=== PATIENT | female | born 1945 | race Caucasian/White ===

== ENCOUNTER 2016-09-27 09:03 | Inpatient (IN) | payer OTHER, MEDICARE ==
[~2016-09-27] VITALS: Ht 162.6 cm; Wt 72.6 kg
--- NOTE | ~2016-09-27 | 2DMMODE ---
[facility] [email or web address] [place] [address] 2 D/M-MODE ECHOCARDIOGRAM Name: ROSALIA ARTHUR Room #: 458-P [facility] IN .R.#: [id number] Admission: 09/27/16 Attend Phys: Sabiha Valdez Discharge: Date of : 41 Date of Service: 09/28/16 1529 Report #: [id number] THIS REPORT FOR: //name// APPROVED REPORT Study performed: 09/28/2016 14:25:13 EXAM: Comprehensive 2D, Doppler, and color-flow Echocardiogram Patient Location: Echo lab/Room 458 Blood Pressure: 140/61 mmHg HR: 68 bpm Rhythm: NSR Other Information Study Quality: Adequate Technically limited study due to body habitus. Indications TIA. Hx: HTN, tobacco abuse, obesity. 2D Dimensions RVDd: 29.98 mm LVEF(%): 65.24 (>50%) IVSd: 11.70 (7-11mm) LVOT Diam: 20.06 (18-24mm) LVDd: 38.72 mm PWd: 11.94 (7-11mm) Ascending Aorta: 39.19 mm LVDs: 25.09 (25-40mm) Aortic Root: 32.23 mm Walker's LVEF: 65.24 % Volumes Left Atrial Volume (Systole) Single Plane 4CH: 15.78 mL Single Plane 2CH: 21.82 mL LA ESV Index: 10.00 mL/m2 Aortic Valve AoV Peak Rip.: 1.58 m/s AO Peak Gr.: 9.95 mmHg LV Max P.82 mmHg LV Max: 1.10 m/s Mitral Valve MV PHT: 63.85 ms MV E Max Rip.: 0.76 m/s E/A Ratio: 0.[address] [facility] [email or web address] [address] 2 D/M-MODE ECHOCARDIOGRAM Name: ROSALIA ARTHUR Room #: 458-[facility] IN ..#: [id number] Admission: 09/27/16 Attend Phys: Sabiha Valdez Discharge: Date of : 41 Date of Service: 09/28/16 1529 Report #: [id number] MV A Rip.: 0.84 m/s MV Decel. Time: 220.18 ms Pulmonary Valve PV Peak Rip.: 1.09 m/s PV Peak Gr.: 4.75 mmHg Tricuspid Valve TR Peak Rip.: 2.30 m/s RAP Estimate: 5.00 mmHg TR Peak Gr.: 21.13 mmHg RVSP: 26.00 mmHg Left Ventricle The left ventricle is normal size. There is normal LV segmental wall motion. Mild concentric left ventricular hypertrophy. Left ventricular systolic function is normal. LVEF is 60-65%. Grade I - abnormal relaxation pattern. Right Ventricle The right ventricle is normal size. The right ventricular systolic function is normal. Atria The left atrium size is normal. Injection of bubbles documented no interatrial shunt. The right atrium size is normal. Aortic Valve The Aortic valve is mildly sclerotic. Trace aortic regurgitation. There is no aortic valvular stenosis. Mitral Valve The mitral valve is normal in structure. Trace mitral regurgitation. Tricuspid Valve The tricuspid valve is normal in structure. There is mild tricuspid regurgitation. The right atrial pressure is estimated at 5 mmHg. Estimated PAP is 26mmHg. Pulmonic Valve The pulmonary valve is normal in structure. Trace pulmonic regurgitation. Great Vessels The aortic root is normal in size. The ascending aorta is mildly dilated. IVC is normal in size and collapses >50% with inspiration. Pericardium [facility] [address] [place] [address] 2 D/M-MODE ECHOCARDIOGRAM Name: ROSALIA ARTHUR Ann Room #: 458-P [facility] IN ..#: [id number] Admission: 09/27/16 Attend Phys: Sabiha Valdez Discharge: Date of : 41 Date of Service: 09/28/16 1529 Report #: [id number] There is no pericardial effusion. <Conclusion> The left ventricle is normal size. LVEF is 60-65%. Injection of bubbles documented no interatrial shunt. The Aortic valve is mildly sclerotic. Trace aortic regurgitation. Trace mitral regurgitation. The tricuspid valve is normal in structure. There is mild tricuspid regurgitation. The right atrial pressure is estimated at 5 mmHg. Estimated PAP is 26mmHg. Trace pulmonic regurgitation. <ELECTRONICALLY SIGNED> By: Hardeep Schmitz MD 09/28/16 1529 1529 1529 Hardeep Schmitz MD /INF
--- NOTE | ~2016-09-27 | EKG ---
[place] [address] [address] [facility] [place] [address] ELECTROCARDIOGRAM REPORT Name: DAPHNEWILMER HEDRICKRA Juarez Room #: 458- ADM IN M.R.#: [id number] Admission: 09/27/16 Attend Phys: Sabiha Christopher Discharge: Date of : 41 Report #: [id number] THIS REPORT FOR: //name// [facility] ED Test Date: 2016-09-27 Test Time: 09:48:07 Pat Name: ROSALIA ARTHUR Department: Room: [facility] Gender: F Functional Analyst: addie : 1945 Requested By: Iliana Leblanc Order Number: [id number] MD: Vernon Thayer Measurements Intervals [place] Rate: 63 P: -16 LA: 208 QRS: -33 QRSD: 89 T: 20 QT: 376 QTc: 385 Interpretive Statements Sinus rhythm Abnormal R-wave progression, late transition Left ventricular hypertrophy No previous ECG available for comparison Electronically Signed On 09-29-2016 7:32:10 CDT by Vernon Thayer [email or web address] <ELECTRONICALLY SIGNED> By: Vernon Thayer MD, [facility] 09/29/16 0732 0948 7 Vernon Thayer MD, FACC /EPI
--- NOTE | ~2016-09-27 | HC ---
[facility] [place] [address] CONSULTATION Name: ROSALIA ARTHUR Room #: 458-P [facility] IN M.R.#: [id number] Admission: 09/27/16 Attend Phys: Sabiha Christopher Discharge: 09/29/16 Date of : 41 Report #: [id number] THIS REPORT FOR: //name// CC: Sabiha Savage PHYSICIANS: Dr. Sabiha Christopher, Dr. Crissy Savage, Dr. Manjinder Jackson Cardiology, Dr. Kevin Laws. 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 She was admitted with some questionable some left-sided weakness and dysesthesias, which then resolved with time. Note that prior to admission that she had been on aspirin 81. She is now on 325. The reason for consult because of the erythrocytosis on admission. On admission, the patient's qhitm-lp-[id number] hemoglobin 16.3, the first finger stick was 15.7, two days later, now it is 15. At the same time, her hematocrit, which had initially been 48 on the outside, has ____ 46.6 and 44.8, which were normal range. At the same time, the patient's white cell count was normal range, her platelet count has been in the lower range lower third of normal with a normal differential. Note, the patient also smokes 4-6 cigarettes a day. The patient still had some residual dysesthesias, but it sounds like she has had some before in the right more than left, just a little bit now in the left. She seems not too worried about it. Note that during this admission, she has no prior history of clots. Her imaging including CT, MRI, ultrasound, echocardiogram have been unrevealing for possible cause. PAST MEDICAL HISTORY: Notable for a history of hypertension for 5 years, history of kidney stones, history of reflux disease and ulcers in the past, history of ruptured disk in the past. Hysterectomy, laminectomy, laparoscopic cholecystectomy, cystoscopy x 3 with some teeth extraction, neurogenic bladder, lower extremity neuropathy. Also, this recent TIA. SOCIAL HISTORY: Light smoker 4-6 cigarettes a day for about 50 years. Alcohol, minimal to none. SOCIAL HISTORY: Retired. No street drugs. FAMILY HISTORY: No one else with clots per her description. MEDICATIONS: In the hospital include spironolactone 50 mg daily, lisinopril 10 daily, oxybutynin 10 b.i.d., trazodone 50 at bedtime, Lovenox given here in the hospital 4 mg at bedtime, aspirin 325 daily, hydrocodone 1 tab q. 6 hours p.r.n., Tylenol q. 4 hours p.r.n., zolpidem 5 mg at bedtime p.r.n., MiraLax 17 grams daily, nitroglycerin p.r.n., Zofran p.r.n. PHYSICAL EXAMINATION: [facility] [address] [place] [address] CONSULTATION Name: DAPHNEFLORIDALMAROSALIA Room #: 458-P [facility] IN M.R.#: [id number] Admission: 09/27/16 Attend Phys: Sabiha Christopher Discharge: 09/29/16 Date of : 41 Report #: [id number] GENERAL: The patient appears her stated age. VITAL SIGNS: Height is 5 feet 4 inches, 162.6 cm, 160 pounds or 72.7 kilograms, wants to check that as her other weights have been 242, 230, ____ and talked to the patient she says her weight at home around 220, so it is probably closer to the 220 pounds, not the 160. Blood pressure is 126/66, O2 sat 94%, respirations 18, pulse 68, temperature is afebrile currently 97.7. LABORATORY DATA: As mentioned above. Current electrolytes were normal. BUN this admission 14, creatinine 1.0. Glucose 117, cholesterol, HDL 52, triglycerides 226, cholesterol 178, do not have liver functions this admit. Coags were normal. White cell count currently 9.2, hemoglobin was 15, hematocrit 44.8, MCV 85.5, platelets 243. Differential normal. TSH 3.03. ____ has drawn ANNA 2 mutation. OBJECTIVE: MOOD: The patient is very pleasant and conversant. She complains/admits to sort of some mild memory difficulties. NEUROLOGIC: She is moving all extremities, will defer full neuro exam to others. LUNGS: Have good symmetric, unlabored expansion. HEART: Regular rate. ABDOMEN: Soft, obese. No organomegaly. EXTREMITIES: Without clubbing, cyanosis or edema. ASSESSMENT AND PLAN: 1. Mild erythrocytosis, which is now not apparent and also was less apparent on full lab draw versus [id number] exam, doubt that patient has ____ with resultant hypercoagulability, but it is reasonable to check to ANNA 2 mutation. The patient was not answering, when I talked about but it has already been drawn so we will let her write so to speak, if it is not drawn then would does follow her blood count serially along if she does increase, would not need to draw, but on either hand given her recent possible TIA, it is reasonable to check, can also consider an erythropoietin level if this test is negative and further investigation is thought to be necessary. Those secondary issues do not cause as much hypercoagulability. 2. History of TIA, now on higher dose aspirin 325 instead of 81. 3. Hypertension, continues medicines. 4. Hyperlipidemia, medicines. 5. Neurogenic bladder, oxybutynin and other medications. 6. Followup, will defer followup to Dr. Savage, should probably continue having labs 3-4 times a year. <ELECTRONICALLY SIGNED> By: Shoaib Houston MD 10/03/16 0841 0857 1242 Shoaib Houston MD /nt
[2016-09-27 09:03] VITALS: BP 148/79
[~2016-09-27 09:03] MED LIST: ALDACTONE25 MG PO; CLARITIN10 MG PO; FISH OIL 1,001000 M2 PO; FLAX SEED OIL1 EACH PO; GINSANA100 M1 PO; GLUCOSAMINE HC500 MG PO; GRAPE SEED 501 EACH PO; HYDROCODONE-AP1 EAC6 PO; IBUPROFEN 800800 MG PO; LISINOPRIL10 MG PO; LUTEIN20 MG PO; OXYBUTYNIN 5 MG5 M2 PO; PRILOSEC20 MG PO; RASPBERRY KETO100 MG PO; RED YEAST RICE600 MG PO; TRAZODONE HCL50 MG PO; VITAMIN B-50 C0.4 MG PO
[2016-09-27 09:26] LABS: POC CA IONIZED 4.7 mg/dL (4.5-5.3); POC CREATININE 0.9 mg/dL (0.6-1.3); POC HEMOGLOBIN 16.3 g/dL (12.0-15.0); POC POTASSIUM 4.1 mmol/L (3.5-5.1)
[2016-09-27 09:49] LABS: ABSOLUTE NEUTROPHILS 4.8 thou/uL (1.4-8.2); BASOPHILS 0.7 % (0.0-2.0); HEMATOCRIT 46.6 % (37.0-47.0); HEMOGLOBIN 15.7 gm/dL (12.0-15.0); LYMPHOCYTES 34.8 % (24.0-44.0); MCH 29.2 pg (26.0-34.0); MCHC 33.8 g/dL (28.0-37.0); MCV 86.3 fL (80.0-100.0); MONOCYTES 5.9 % (1.0-8.0); PLATELET COUNT 252 thou/uL (150-400); POLYS 55.6 % (36.0-66.0); RDW 13.7 % (10.5-14.5); WBC 8.7 thou/uL (4.0-11.0)
[2016-09-27 09:51] LABS: MANUAL DIFF NO
[2016-09-27 10:04] LABS: ANION GAP 8 mmol/L (7-16); CALCIUM 9.3 mg/dL (8.5-10.1); CHLORIDE 104 mmol/L (98-107); CO2 28 mmol/L (21-32); GLUCOSE 117 mg/dL (74-106); POTASSIUM 4.1 mmol/L (3.5-5.1); SODIUM 140 mmol/L (136-145); TROPONIN-I < 0.04 ng/mL (<0.04-0.07)
[2016-09-27 10:06] LABS: APTT 27.3 Seconds (24.5-32.8); PROTIME 10.7 Seconds (9.3-11.4)
[2016-09-27 10:14] LABS: BUN 14 mg/dL (7-18)
[2016-09-27 11:15] VITALS: BP 146/70
[2016-09-27 12:39] LABS: CHOLESTEROL 178 mg/dL (<200); HDL CHOLESTEROL 52 mg/dL (>40); LDL CHOLESTEROL 81 mg/dL (<100); TC:HDL 3.4 Ratio (Not establshd); TRIGLYCERIDE 226 mg/dL (<150); VLDL 45 mg/dL (<40)
[2016-09-27 16:00] VITALS: BP 133/57
[2016-09-27 20:07] VITALS: BP 144/78
[2016-09-27] MEDS ORDERED: PRAVACHOL40 MG PO (20:11)
[2016-09-27 20:35] VITALS: BP 107/71
[2016-09-27 23:55] VITALS: BP 127/59
[2016-09-28] VITALS (7 sets, daily range): BP systolic 98–140; BP diastolic 56–92
[2016-09-28 03:09] LABS: GLYCOHEMOGLOBIN (HGB A1C) 5.5 % (4.8-5.6)
[2016-09-28] MEDS ORDERED: ASPIRIN325 PO (16:48)
[2016-09-29 04:08] VITALS: BP 122/78
[2016-09-29 05:31] LABS: ABSOLUTE NEUTROPHILS 5.1 thou/uL (1.4-8.2); BASOPHILS 0.6 % (0.0-2.0); EOSINOPHILS 2.5 % (0.0-3.0); HEMATOCRIT 44.8 % (37.0-47.0); LYMPHOCYTES 34.7 % (24.0-44.0); MCH 28.7 pg (26.0-34.0); MCHC 33.6 g/dL (28.0-37.0); MCV 85.5 fL (80.0-100.0); MONOCYTES 6.9 % (1.0-8.0); PLATELET COUNT 243 thou/uL (150-400); POLYS 55.3 % (36.0-66.0); RBC 5.24 mil/uL (4.20-5.00); RDW 13.9 % (10.5-14.5); WBC 9.2 thou/uL (4.0-11.0)
[2016-09-29 05:39] LABS: MANUAL DIFF NO
[2016-09-29 08:13] VITALS: BP 126/66
[2016-09-29 12:00] VITALS: BP 119/88
[2016-09-29 12:45] VITALS: BP 119/88
== END 2016-09-29 13:30 | disposition home or self-care (01) | DRG 69 ==
LOC: ER 09:03 → 4W 10:21 → EROBS 10:21 → 4W 11:40
PROVIDERS: Emergency Medicine; Hospitalist
DX: G45.9 Transient cerebral ischemic attack, unspecified (principal); I10 Essential (primary) hypertension; D75.1 Secondary polycythemia; K21.9 Gastro-esophageal reflux disease without esophagitis; Z60.2 Problems related to living alone; G62.9 Polyneuropathy, unspecified; F17.210 Nicotine dependence, cigarettes, uncomplicated; Z79.899 Other long term (current) drug therapy; Z87.442 Personal history of urinary calculi; Z90.710 Acquired absence of both cervix and uterus; Z90.49 Acquired absence of other specified parts of digestive tract; Z88.6 Allergy status to analgesic agent
CPT/HCPCS: 10045

== ENCOUNTER → 2019-08-22 | Outpatient (CLI) | payer OTHER, MEDICARE ==
[~2019-08-22] MED LIST changes: +ASPIRIN325 PO; +PRAVACHOL40 MG PO
== END ==
LOC: MRI 09:55
DX: G31.89 Other specified degenerative diseases of nervous system (principal); I67.82 Cerebral ischemia

== ENCOUNTER → 2019-09-20 | Outpatient (CLI) | payer OTHER, MEDICARE ==
--- NOTE | 2019-09-23 19:45 | SLE ---
[facility] [place] [address] POLYSOMNOGRAPHY STUDY Name: ROSALIA ARTHUR Room #: [facility]#: [id number] Admission: 09/20/19 Attend Phys: Demian Harris MD Discharge: Date of : 41 Report #: [id number] THIS REPORT FOR: //name// CC: Demian Batista MD DATE OF SERVICE: 09/20/2019 SLEEP STUDY REFERRING PHYSICIAN: Dr. Júnior Batista. The patient is 74 years old who weighs 223 pounds with a BMI of 38. The patient's [place] score was 17. The patient underwent sleep study performed at [facility]. During the night study, the patient spent 438 minutes in bed and slept for 422 minutes with a sleep efficiency of 96%. Sleep latency was 1.7 minutes with a REM latency of 14.5 minutes. Sleep architecture showed 32 obstructive apneas, no mixed and 1 central apnea and 53 hypopneas. The patient's AHI was 12.2 per hour with a REM AHI of 40.2 per hour. Supine AHI was 19.5 per hour. EKG monitoring revealed an average heart rate of 65 beats per minute. No sustained arrhythmias observed. PLMS were seen at an index of 17 per hour and 1 per hour caused EEG arousals. Nocturnal oximetry study revealed an average oxygen saturation of 90% with lowest of 72%. 144 minutes were spent in oxygen saturation less than 89%. Due to low AHI, the patient did not meet the split night criteria for CPAP initiation. IMPRESSION: 1. Mild obstructive sleep apnea with worsening during REM sleep. Total AHI 12 per hour with a REM AHI of 40 per hour and a supine AHI of 19.5 per hour. 2. Nocturnal hypoxia secondary to obstructive sleep apnea. 3. Mild periodic limb movements. RECOMMENDATIONS: 1. The patient is clinically symptomatic with an [place] score of 17. I would recommend treating the patient's sleep apnea with CPAP. Once the patient is optimally treated, then follow up in 4-6 weeks to assess compliance with CPAP and to document clinical improvement. 2. Weight loss is advised. [facility] [address] [place] [address] POLYSOMNOGRAPHY STUDY Name: ROASLIA ARTHUR Room #: [facility].#: [id number] Admission: 09/20/19 Attend Phys: Demian Harris MD Discharge: Date of : 41 Report #: [id number] 3. Avoid [employer] depressants. 4. Cautioned regarding driving until symptoms of sleep apnea resolve with the use of CPAP. 5. The patient's PLMS does not need to be treated unless the patient has symptoms of restless legs during the day. <ELECTRONICALLY SIGNED> By: Demian Harris MD 09/23/19 1945 1553 1622 Demian Harris MD /nt
== END ==
LOC: SLEEPLAB 10:36
PROVIDERS: ATTEND Internal Medicine Critical Care Medicine
DX: G47.34 Idiopathic sleep related nonobstructive alveolar hypoventilation (principal)

== ENCOUNTER → 2019-10-15 | Outpatient (CLI) | payer OTHER, MEDICARE | LOC: SJCVCIMAG 09:33 | DX: I08.2 Rheumatic disorders of both aortic and tricuspid valves (principal); I77.810 Thoracic aortic ectasia; I10 Essential (primary) hypertension; K21.9 Gastro-esophageal reflux disease without esophagitis; R60.9 Edema, unspecified; E78.00 Pure hypercholesterolemia, unspecified; Z79.899 Other long term (current) drug therapy; Z79.82 Long term (current) use of aspirin; Z82.49 Family history of ischemic heart disease and other diseases of the circulatory system; Z87.891 Personal history of nicotine dependence ==